=== PATIENT | male | born 1975 | race Caucasian/White ===

== ENCOUNTER 2019-04-07 16:49 | Emergency (ER) | payer OTHER ==
--- NOTE | 2019-04-07 17:56 | CRLCR ---
INDICATION: Trauma, hand pain TECHNIQUE: X-ray right hand, three views COMPARISON: None available FINDINGS: There is a nondisplaced fracture of the 2nd tuft. The alignment is normal. No other fracture is seen. The soft tissues unremarkable. No radiopaque foreign body is visualized. IMPRESSION: Nondisplaced fracture of the 2nd tuft. Dictated by Juli Sanz MD @ 04/07/2019 5:55:55 PM Dictated by: Juli Sanz MD @ 04/07/2019 17:56:03 (Electronically Signed)
--- NOTE | 2019-04-07 17:59 | EDM.PDOC ---
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 Mostly it hit the distal phalanx of the index finger and then the mid part of the dorsum of the hand mostly over the fourth and fifth metatarsals. Right Hand Pain Score (Numeric/FACES): 6 - Related Data Allergies Allergy/AdvReac Type Severity Reaction Status Date / Time No Known Allergies Allergy Verified 04/07/19 17:17 Home Meds: Home Meds Lisinopril 10 mg PO DAILY 04/07/19 [History] SUMAtriptan Succinate [Imitrex] 100 mg PO ASDIRECTED PRN 04/07/19 [History] buPROPion [buPROPion XL] 150 mg PO DAILY 04/07/19 [History] Past Medical History Cardiovascular History: Reports: Hypertension Gastrointestinal History: Reports: GERD Musculoskeletal History: Reports: Other (See Below) Other Musculoskeletal History: carpal tunnel Neurological History: Reports: Migraines Social & Family History - Tobacco Use Smoking Status *Q: Former Smoker Used Tobacco, but Quit: Yes Month/Year Tobacco Last Used: 6 years - Caffeine Use Caffeine Use: Reports: Coffee - Recreational Drug Use Recreational Drug Use: No Review of Systems - Review of Systems Review Of Systems: ROS reveals no pertinent complaints other than HPI. ED EXAM, GENERAL - Physical Exam Exam: See Below Exam Limited By: No Limitations General Appearance: Alert, WD/WN, Mild Distress Extremities: Other (He has 2 small blood blisters or cutaneous hematomas to the distal phalanx of the right index finger there are no more than about 5 mm in diameter each. The there is a very slight subungual hematoma also. There is good range of motion of the finger. There is some mild tenderness to the dorsum of the hand as described but nothing that suggest a fracture.) Course - Vital Signs Last Recorded V/S: Last Vital Signs Temp 36.1 C 04/07/19 17:15 Pulse 60 04/07/19 17:15 Resp 16 04/07/19 17:15 BP 144/93 H 04/07/19 17:15 Pulse Ox 100 04/07/19 17:15 - Orders/Labs/Meds Orders: Active Orders 24 hr Category Date Time Status Hand Comp Min 3V Rt [CR] Stat Exams 04/07/19 17:17 Taken - Radiology Interpretation Free Text/Narrative:: X-rays shows possibly a little fracture to the tuft of the index finger otherwise hand x-ray is negative Departure - Departure Time of Disposition: 17:57 Disposition: Home, Self-Care 01 Condition: Fair Clinical Impression: Fracture of distal phalanx of index finger - Discharge Information Referrals: PCP,None [Primary Care Provider] - Additional Instructions: Keep the dressing on the finger for a few days just for protection. Don't pop the blood blisters just low albumin to dry and they'll form sort of their own bandage. For pain take the [place] 5/325 one or 2 every 4 hours #12. This medication can cause sedation and impair driving. There is a questionable fracture to the little tuft or ball of bone on the end of your index finger. This doesn't need any kind of treatment but will be painful for a few days. - My Orders Last 24 Hours: My Active Orders 04/07/19 17:17 Hand Comp Min 3V Rt [CR] Stat - Assessment/Plan Last 24 Hours: My Active Orders 04/07/19 17:17 Hand Comp Min 3V Rt [CR] Stat
== END 2019-04-07 18:08 | disposition home or self-care (01) ==
LOC: JP.ED 16:49
DX: S62.630A Displaced fracture of distal phalanx of right index finger, initial encounter for closed fracture (principal); I10 Essential (primary) hypertension; K21.9 Gastro-esophageal reflux disease without esophagitis; Z87.891 Personal history of nicotine dependence; Z79.899 Other long term (current) drug therapy; W22.8XXA Striking against or struck by other objects, initial encounter
CPT/HCPCS: 73130-RT; 99283-25